=== PATIENT | female | born 1970 | race Caucasian/White ===

== ENCOUNTER 2017-10-23 14:46 | Emergency (ER) | payer OTHER ==
[2017-10-23] MEDS: HYDROCODONE/APAP (5/325) TAB PO (16:44)
[2017-10-23] MEDS: KETOROLAC 30 MG INJ IM (16:44)
== END 2017-10-23 16:50 | disposition home or self-care (01) ==
LOC: FTE 14:46
DX: R05 Cough (principal); R50.9 Fever, unspecified; J02.9 Acute pharyngitis, unspecified; R52 Pain, unspecified
CPT/HCPCS: 96372; 99284-25; J1885

== ENCOUNTER 2018-05-18 11:12 | Emergency (ER) | payer OTHER ==
[2018-05-18] MEDS: ONDANSETRON (ODT) 4 MG TAB ODT (12:09)
[2018-05-18] MEDS: HYDROmorphONE 2 MG/ML SYG IM (12:09)
== END 2018-05-18 13:04 | disposition home or self-care (01) ==
LOC: FTE 11:12
DX: M54.42 Lumbago with sciatica, left side (principal); M54.41 Lumbago with sciatica, right side; G89.29 Other chronic pain
CPT/HCPCS: 96372; 99284-25

== ENCOUNTER 2018-12-07 19:31 | Inpatient (IN) | payer OTHER ==
[2018-12-07] MEDS ORDERED: NACL 0.9% 3 ML SYG IV (20:30)
[2018-12-07] MEDS ORDERED: BACLOFEN 10 MG TAB PO (21:00)
[2018-12-07] MEDS: morphine 4 MG/ML VIAL IV (21:43)
[2018-12-07] MEDS: PANTOPRAZOLE (EC) 40 MG TAB PO (21:43)
[2018-12-07] MEDS: HYDROXYCHLOROQUINE 200 MG TAB PO (22:37)
[2018-12-07] MEDS: DEXAMETHASONE 10 MG/ML 1 ML INJ IV (22:37)
[2018-12-07] MEDS: SOD CHLORIDE 0.9% 1,000 ML IV (23:08)
[2018-12-08] MEDS: ONDANSETRON 4 MG INJ IV (03:22)
[2018-12-08] MEDS: morphine 4 MG/ML VIAL IV ×7 (03:25→22:18)
[2018-12-08] MEDS: SOD CHLORIDE 0.9% 1,000 ML IV (04:07)
[2018-12-08 05:14] LABS: ADD MAN DIFF? NO
[2018-12-08 05:23] LABS: WHITE BLOOD COUNT 7.2 10^3/ul (4.8-10.8)
[2018-12-08 05:23] LABS: ABNORMAL IP MESSAGE 1; BASOPHILS % 0.4 % (0.0-2.0); HEMATOCRIT 44.1 % (37.0-47.0); LYMPHOCYTES # 0.4 10^3/ul (0.8-2.9); LYMPHOCYTES % 5.4 % (15.0-51.0); MEAN CORPUSCULAR HEMOGLOBIN 28.7 pg (29.0-33.0); MEAN CORPUSCULAR HGB CONC 31.7 g/dl (32.0-37.0); MEAN CORPUSCULAR VOLUME 90.4 fl (82.0-101.0); MEAN PLATELET VOLUME 10.4 fl (7.4-10.4); MONOCYTE # 0.1 10^3/ul (0.3-0.9); MONOCYTES % 1.1 % (0.0-11.0); NEUTROPHIL # 6.7 10^3/ul (1.6-7.5); NEUTROPHILS % 92.4 % (39.0-77.0); PLATELET COUNT 258 10^3/UL (140-415); RED BLOOD COUNT 4.88 10^6/ul (4.20-5.40); RED CELL DISTRIBUTION WIDTH 13.8 % (11.5-14.5)
[2018-12-08 05:35] LABS: POSITIVE DIFF @See below
[2018-12-08 06:04] LABS: C-REACTIVE PROTEIN 0.6 mg/dl (0.0-0.9)
[2018-12-08 06:24] LABS: ALANINE AMINOTRANSFERASE 90 IU/L (13-69); ALBUMIN 3.9 g/dl (3.3-4.9); ALBUMIN/GLOBULIN RATIO 1.25; ALKALINE PHOSPHATASE 118 IU/L (42-121); ANION GAP 9 (5-13); ASPARTATE AMINO TRANSFERASE 71 IU/L (15-46); BILIRUBIN,INDIRECT 0.4 mg/dl (0-1.1); BILIRUBIN,TOTAL 0.4 mg/dl (0.2-1.3); BLOOD UREA NITROGEN 16 mg/dl (7-20); CALCIUM 9.5 mg/dl (8.4-10.2); CARBON DIOXIDE 27 mmol/L (21-31); CHLORIDE 105 mmol/L (97-110); CHOL/HDL RATIO 4.7 RATIO; CHOLESTEROL 243 mg/dl (100-200); CREATININE 0.65 mg/dl (0.44-1.00); Estimated GFR > 60 mL/min (>60); GLUCOSE 143 mg/dl (70-220); HDL CHOLESTEROL 51 mg/dl (34-88); LDL CHOLESTEROL,CALCULATED 162 mg/dl; MAGNESIUM 2.1 mg/dl (1.7-2.5); SODIUM 141 mmol/L (135-144); TRIGLYCERIDES 152 mg/dl (0-149)
[2018-12-08] MEDS: PANTOPRAZOLE (EC) 40 MG TAB PO (06:29)
[2018-12-08 06:36] LABS: THYROID STIMULATING HORMONE 0.977 MIU/L (0.465-4.680)
[2018-12-08 07:01] LABS: ERYTHROCYTE SEDIMENTATION RATE 11 mm/Hr (0-20)
[2018-12-08 07:20] LABS: HEMOGLOBIN A1C 5.7 % (0-5.9)
[2018-12-08] MEDS: HYDROXYCHLOROQUINE 200 MG TAB PO ×2 (09:51→21:01)
[2018-12-08] MEDS: BACLOFEN 10 MG TAB PO (14:46)
[2018-12-08] MEDS: DIPHENHYDRAMINE 50 MG INJ IV (17:05)
[2018-12-09] MEDS: HYDROCODONE/APAP (5/325) TAB PO ×2 (01:32→16:06)
[2018-12-09] MEDS: morphine 4 MG/ML VIAL IV ×6 (01:36→21:42)
[2018-12-09] MEDS: DEXAMETHASONE 4 MG/ML 1 ML INJ IV ×4 (04:03→21:42)
[2018-12-09] MEDS: PANTOPRAZOLE (EC) 40 MG TAB PO (05:37)
[2018-12-09] MEDS: HYDROXYCHLOROQUINE 200 MG TAB PO ×2 (08:52→21:13)
[2018-12-09] MEDS: DIPHENHYDRAMINE 25 MG CAP PO (17:03)
[2018-12-10] MEDS: DEXAMETHASONE 4 MG/ML 1 ML INJ IV ×4 (04:04→21:19)
[2018-12-10] MEDS: PANTOPRAZOLE (EC) 40 MG TAB PO (05:46)
[2018-12-10 06:08] LABS: ADD MAN DIFF? NO
[2018-12-10 06:18] LABS: BASOPHILS % 0.1 % (0.0-2.0); HEMATOCRIT 43.6 % (37.0-47.0); LYMPHOCYTES # 0.8 10^3/ul (0.8-2.9); LYMPHOCYTES % 5.7 % (15.0-51.0); MEAN CORPUSCULAR HEMOGLOBIN 28.4 pg (29.0-33.0); MEAN CORPUSCULAR HGB CONC 32.1 g/dl (32.0-37.0); MEAN CORPUSCULAR VOLUME 88.4 fl (82.0-101.0); MEAN PLATELET VOLUME 10.5 fl (7.4-10.4); MONOCYTE # 0.7 10^3/ul (0.3-0.9); MONOCYTES % 4.9 % (0.0-11.0); NEUTROPHIL # 12.3 10^3/ul (1.6-7.5); NEUTROPHILS % 88.5 % (39.0-77.0); PLATELET COUNT 265 10^3/UL (140-415); RED BLOOD COUNT 4.93 10^6/ul (4.20-5.40); RED CELL DISTRIBUTION WIDTH 13.5 % (11.5-14.5)
[2018-12-10 06:18] LABS: WHITE BLOOD COUNT 13.9 10^3/ul (4.8-10.8)
[2018-12-10] MEDS: morphine 4 MG/ML VIAL IV ×3 (06:32→21:19)
[2018-12-10 07:10] LABS: ANION GAP 8 (5-13); BLOOD UREA NITROGEN 14 mg/dl (7-20); CALCIUM 9.5 mg/dl (8.4-10.2); CARBON DIOXIDE 27 mmol/L (21-31); CHLORIDE 107 mmol/L (97-110); CREATININE 0.59 mg/dl (0.44-1.00); Estimated GFR > 60 mL/min (>60); GLUCOSE 135 mg/dl (70-220); MAGNESIUM 2.2 mg/dl (1.7-2.5); PHOSPHORUS 2.8 mg/dl (2.5-4.9); SODIUM 142 mmol/L (135-144)
[2018-12-10] MEDS: HYDROXYCHLOROQUINE 200 MG TAB PO ×2 (08:52→21:18)
[2018-12-10] MEDS ORDERED: MIDAZOLAM 1 MG/ML 2 ML INJ ×2 (16:36→19:14)
[2018-12-10] MEDS ORDERED: GELATIN SIZE 100 SPONGE (16:42)
[2018-12-10] MEDS: POLYMYXIN/BACITRACIN 1L IRRIG (17:38)
[2018-12-10] MEDS: HEMOSTATIC MATRIX SYG ZFS (17:39)
[2018-12-10] MEDS: BUPIVACAINE 0.5%/EPI (SDV) 30 ML INJ (17:39)
[2018-12-10] MEDS: THROMBIN (BOVINE) 5,000 UNIT VIAL TP (17:40)
[2018-12-10] MEDS ORDERED: GLYCOPYRROLATE 0.4 MG INJ (18:56)
[2018-12-10] MEDS ORDERED: LIDOCAINE 2% (SDV) 5 ML INJ (18:56)
[2018-12-10] MEDS ORDERED: NEOSTIGMINE 3 MG/3 ML SYRINGE (18:56)
[2018-12-10] MEDS ORDERED: ROCURONIUM 50 MG INJ (18:56)
[2018-12-10] MEDS ORDERED: PROPOFOL 20 ML (18:56)
[2018-12-10] MEDS ORDERED: CEFAZOLIN 1 GM INJ (18:57)
[2018-12-10] MEDS ORDERED: ONDANSETRON 4 MG INJ (18:57)
[2018-12-10] MEDS: MIDAZOLAM 1 MG/ML 2 ML INJ IV (19:24)
[2018-12-10] MEDS: HYDROmorphONE 1 MG/5 ML IV SYRINGE IV ×3 (19:29→19:59)
[2018-12-10] MEDS ORDERED: DIPHENHYDRAMINE 50 MG INJ IV (19:30)
[2018-12-10] MEDS ORDERED: MEPERIDINE 25 MG INJ IV (19:30)
[2018-12-10] MEDS ORDERED: METOCLOPRAMIDE 10 MG INJ IV (19:30)
[2018-12-10] MEDS ORDERED: LABETALOL HCL 20MG INJ IV (19:30)
[2018-12-10] MEDS ORDERED: FENTAnyl 50 MCG/ML VIAL IV (19:30)
[2018-12-10] MEDS ORDERED: HYDROmorphONE 1 MG/5 ML IV SYRINGE IV (19:30)
[2018-12-10] MEDS: ONDANSETRON 4 MG INJ IV (19:30)
[2018-12-10] MEDS: CEFAZOLIN 1 GM/50 ML (PMX) 50 ML IVPB (21:17)
[2018-12-11] MEDS: HYDROCODONE/APAP (5/325) TAB PO ×2 (00:11→20:01)
[2018-12-11] MEDS: LORAZEPAM 0.5 MG TAB PO (00:11)
[2018-12-11] MEDS: morphine 4 MG/ML VIAL IV ×5 (02:02→22:38)
[2018-12-11] MEDS: DEXAMETHASONE 4 MG/ML 1 ML INJ IV ×4 (04:48→22:38)
[2018-12-11] MEDS: ACETAMINOPHEN 325 MG TAB PO (05:06)
[2018-12-11] MEDS: PANTOPRAZOLE (EC) 40 MG TAB PO (06:37)
[2018-12-11] MEDS: CEFAZOLIN 1 GM/50 ML (PMX) 50 ML IVPB ×2 (06:37→13:39)
[2018-12-11 07:48] LABS: ADD MAN DIFF? NO
[2018-12-11 07:53] LABS: BASOPHILS % 0.2 % (0.0-2.0); HEMATOCRIT 40.4 % (37.0-47.0); LYMPHOCYTES # 0.7 10^3/ul (0.8-2.9); LYMPHOCYTES % 4.8 % (15.0-51.0); MEAN CORPUSCULAR HGB CONC 32.2 g/dl (32.0-37.0); MEAN CORPUSCULAR VOLUME 90.2 fl (82.0-101.0); MEAN PLATELET VOLUME 10.3 fl (7.4-10.4); MONOCYTES % 6.8 % (0.0-11.0); NEUTROPHIL # 12.5 10^3/ul (1.6-7.5); NEUTROPHILS % 87.3 % (39.0-77.0); PLATELET COUNT 240 10^3/UL (140-415); RED BLOOD COUNT 4.48 10^6/ul (4.20-5.40); RED CELL DISTRIBUTION WIDTH 13.3 % (11.5-14.5)
[2018-12-11 07:53] LABS: WHITE BLOOD COUNT 14.4 10^3/ul (4.8-10.8)
[2018-12-11 08:12] LABS: ANION GAP 5 (5-13); BLOOD UREA NITROGEN 17 mg/dl (7-20); CALCIUM 8.9 mg/dl (8.4-10.2); CARBON DIOXIDE 27 mmol/L (21-31); CHLORIDE 109 mmol/L (97-110); CREATININE 0.75 mg/dl (0.44-1.00); Estimated GFR > 60 mL/min (>60); GLUCOSE 114 mg/dl (70-220); POTASSIUM 4.1 mmol/L (3.5-5.1); SODIUM 141 mmol/L (135-144)
[2018-12-11] MEDS: HYDROXYCHLOROQUINE 200 MG TAB PO ×2 (09:23→21:14)
[2018-12-11] MEDS: DOCUSATE SODIUM 100 MG CAP PO (09:23)
[2018-12-11] MEDS ORDERED: GABAPENTIN 100 MG CAP (19:57)
[2018-12-11] MEDS: GABAPENTIN 100 MG CAP PO (20:01)
[2018-12-12] MEDS: morphine 4 MG/ML VIAL IV ×5 (02:53→20:39)
[2018-12-12] MEDS: DEXAMETHASONE 4 MG/ML 1 ML INJ IV ×4 (04:04→22:06)
[2018-12-12] MEDS: HYDROCODONE/APAP (5/325) TAB PO ×2 (04:04→22:04)
[2018-12-12 05:44] LABS: ADD MAN DIFF? NO
[2018-12-12] MEDS: PANTOPRAZOLE (EC) 40 MG TAB PO (06:06)
[2018-12-12 06:08] LABS: WHITE BLOOD COUNT 14.4 10^3/ul (4.8-10.8)
[2018-12-12 06:08] LABS: BASOPHILS % 0.1 % (0.0-2.0); HEMOGLOBIN 13.4 g/dl (12.0-16.0); LYMPHOCYTES # 0.8 10^3/ul (0.8-2.9); LYMPHOCYTES % 5.6 % (15.0-51.0); MEAN CORPUSCULAR HEMOGLOBIN 28.3 pg (29.0-33.0); MEAN CORPUSCULAR HGB CONC 31.2 g/dl (32.0-37.0); MEAN CORPUSCULAR VOLUME 90.7 fl (82.0-101.0); MEAN PLATELET VOLUME 10.4 fl (7.4-10.4); MONOCYTE # 1.4 10^3/ul (0.3-0.9); NEUTROPHIL # 11.9 10^3/ul (1.6-7.5); NEUTROPHILS % 82.8 % (39.0-77.0); PLATELET COUNT 239 10^3/UL (140-415); RED BLOOD COUNT 4.74 10^6/ul (4.20-5.40); RED CELL DISTRIBUTION WIDTH 13.5 % (11.5-14.5)
[2018-12-12 06:29] LABS: ANION GAP 5 (5-13); BLOOD UREA NITROGEN 16 mg/dl (7-20); CALCIUM 8.9 mg/dl (8.4-10.2); CARBON DIOXIDE 26 mmol/L (21-31); CHLORIDE 109 mmol/L (97-110); CREATININE 0.62 mg/dl (0.44-1.00); Estimated GFR > 60 mL/min (>60); GLUCOSE 136 mg/dl (70-220); POTASSIUM 4.1 mmol/L (3.5-5.1); SODIUM 140 mmol/L (135-144)
[2018-12-12] MEDS: HYDROXYCHLOROQUINE 200 MG TAB PO ×2 (09:14→20:43)
[2018-12-12] MEDS: ACETAMINOPHEN 325 MG TAB PO (09:14)
[2018-12-12] MEDS: GABAPENTIN 100 MG CAP PO ×3 (09:15→20:43)
[2018-12-12] MEDS: DOCUSATE SODIUM 100 MG CAP PO (11:38)
[2018-12-12] MEDS: BISACODYL (EC) 5 MG TAB PO (20:43)
[2018-12-13] MEDS: morphine 4 MG/ML VIAL IV ×4 (01:40→20:07)
[2018-12-13] MEDS: BISACODYL (EC) 5 MG TAB PO (04:07)
[2018-12-13] MEDS: HYDROCODONE/APAP (5/325) TAB PO (04:07)
[2018-12-13] MEDS: DEXAMETHASONE 4 MG/ML 1 ML INJ IV ×4 (04:07→21:13)
[2018-12-13] MEDS: PANTOPRAZOLE (EC) 40 MG TAB PO (05:39)
[2018-12-13 05:51] LABS: ADD MAN DIFF? NO
[2018-12-13 05:57] LABS: BASOPHIL # 0.1 10^3/ul (0.0-0.1); BASOPHILS % 0.5 % (0.0-2.0); HEMATOCRIT 45.8 % (37.0-47.0); HEMOGLOBIN 14.4 g/dl (12.0-16.0); LYMPHOCYTES # 1.1 10^3/ul (0.8-2.9); LYMPHOCYTES % 7.4 % (15.0-51.0); MEAN CORPUSCULAR HEMOGLOBIN 28.7 pg (29.0-33.0); MEAN CORPUSCULAR HGB CONC 31.4 g/dl (32.0-37.0); MEAN CORPUSCULAR VOLUME 91.2 fl (82.0-101.0); MEAN PLATELET VOLUME 10.2 fl (7.4-10.4); MONOCYTE # 1.2 10^3/ul (0.3-0.9); MONOCYTES % 7.9 % (0.0-11.0); NEUTROPHIL # 12.5 10^3/ul (1.6-7.5); PLATELET COUNT 240 10^3/UL (140-415); RED BLOOD COUNT 5.02 10^6/ul (4.20-5.40); RED CELL DISTRIBUTION WIDTH 13.4 % (11.5-14.5)
[2018-12-13 05:57] LABS: WHITE BLOOD COUNT 15.4 10^3/ul (4.8-10.8)
[2018-12-13 06:24] LABS: ANION GAP 8 (5-13); BLOOD UREA NITROGEN 19 mg/dl (7-20); CALCIUM 9.4 mg/dl (8.4-10.2); CARBON DIOXIDE 27 mmol/L (21-31); CHLORIDE 107 mmol/L (97-110); Estimated GFR > 60 mL/min (>60); GLUCOSE 157 mg/dl (70-220); POTASSIUM 4.2 mmol/L (3.5-5.1); SODIUM 142 mmol/L (135-144)
[2018-12-13] MEDS: GABAPENTIN 100 MG CAP PO ×3 (09:42→21:13)
[2018-12-13] MEDS: HYDROXYCHLOROQUINE 200 MG TAB PO ×2 (09:42→21:12)
[2018-12-13] MEDS: LIDOCAINE 5% PATCH TD (17:46)
[2018-12-13] MEDS: CYCLOBENZAPRINE 10 MG TAB PO (21:12)
[2018-12-14] MEDS: morphine 4 MG/ML VIAL IV ×3 (01:42→12:37)
[2018-12-14] MEDS: PANTOPRAZOLE (EC) 40 MG TAB PO (05:10)
[2018-12-14] MEDS: DEXAMETHASONE 4 MG/ML 1 ML INJ IV ×4 (05:10→21:56)
[2018-12-14 06:10] LABS: WHITE BLOOD COUNT 12.7 10^3/ul (4.8-10.8)
[2018-12-14 06:10] LABS: ABNORMAL IP MESSAGE 1; HEMATOCRIT 43.5 % (37.0-47.0); HEMOGLOBIN 13.6 g/dl (12.0-16.0); MEAN CORPUSCULAR HEMOGLOBIN 28.7 pg (29.0-33.0); MEAN CORPUSCULAR HGB CONC 31.3 g/dl (32.0-37.0); MEAN CORPUSCULAR VOLUME 91.8 fl (82.0-101.0); MEAN PLATELET VOLUME 10.4 fl (7.4-10.4); PLATELET COUNT 201 10^3/UL (140-415); RED BLOOD COUNT 4.74 10^6/ul (4.20-5.40); RED CELL DISTRIBUTION WIDTH 13.5 % (11.5-14.5)
[2018-12-14 06:14] LABS: ADD MAN DIFF? YES; POSITIVE DIFF @See below
[2018-12-14 06:39] LABS: ANION GAP 3 (5-13); BLOOD UREA NITROGEN 16 mg/dl (7-20); CARBON DIOXIDE 29 mmol/L (21-31); CHLORIDE 110 mmol/L (97-110); CREATININE 0.71 mg/dl (0.44-1.00); Estimated GFR > 60 mL/min (>60); GLUCOSE 117 mg/dl (70-220); POTASSIUM 4.2 mmol/L (3.5-5.1); SODIUM 142 mmol/L (135-144)
[2018-12-14 07:12] LABS: ANISOCYTOSIS 1+ (0-0); LYMPHOCYTES #M 0.8 10^3/ul (0.8-2.9); LYMPHOCYTES % (M) 7 % (15-51); MICROCYTOSIS 1+ (0-0); MONOCYTE #M 0.6 10^3/ul (0.3-0.9); MONOCYTES % (M) 5 % (0-11); PLATELET ESTIMATE NORMAL; POIKILOCYTOSIS 1+ (0-0); REACTIVE LYMPHOCYTES #M 0.2 10^3/ul (0.0-0.0); REACTIVE LYMPHOCYTES% (M) 2 % (0-0); SEGMENTED NEUTROPHILS (M) % 86 % (39-77); SMUDGE%M 38 % (0-0)
[2018-12-14] MEDS: GABAPENTIN 100 MG CAP PO ×3 (08:58→20:38)
[2018-12-14] MEDS: CYCLOBENZAPRINE 10 MG TAB PO ×3 (08:58→20:38)
[2018-12-14] MEDS: HYDROXYCHLOROQUINE 200 MG TAB PO ×2 (08:59→20:39)
[2018-12-14] MEDS: LIDOCAINE 5% PATCH TD (09:00)
[2018-12-14] MEDS ORDERED: morphine 2 MG INJ IV (13:30)
[2018-12-15] MEDS: DEXAMETHASONE 4 MG/ML 1 ML INJ IV ×2 (04:24→10:02)
[2018-12-15] MEDS: HYDROCODONE/APAP (5/325) TAB PO ×2 (06:14→12:19)
[2018-12-15] MEDS: PANTOPRAZOLE (EC) 40 MG TAB PO (06:14)
[2018-12-15] MEDS: LIDOCAINE 5% PATCH TD (09:29)
[2018-12-15] MEDS: HYDROXYCHLOROQUINE 200 MG TAB PO (09:29)
[2018-12-15] MEDS: CYCLOBENZAPRINE 10 MG TAB PO ×2 (09:29→12:56)
[2018-12-15] MEDS: GABAPENTIN 100 MG CAP PO ×2 (09:29→12:58)
== END 2018-12-15 15:02 | disposition home health service (06) | DRG 517 ==
LOC: 6WM 19:31 → PP2 12-08 03:25
PROC: 01NB0ZZ Release Lumbar Nerve, Open Approach (ICD-10-PCS; principal; 2018-12-10 16:00)
DX: M51.16 Intervertebral disc disorders with radiculopathy, lumbar region (principal); M48.062 Spinal stenosis, lumbar region with neurogenic claudication; M06.9 Rheumatoid arthritis, unspecified; E66.9 Obesity, unspecified; E78.5 Hyperlipidemia, unspecified; Z68.31 Body mass index [BMI] 31.0-31.9, adult
CPT/HCPCS: 71045; 72020; 72125; 72148; 80048; 80053; 80061; 83036; 83735; 84100; 84443; 84703; 85025; 85651; 86140; 97116; 97161; 97530